=== PATIENT | male | born 1985 | race Caucasian/White ===

== ENCOUNTER 2019-04-13 17:03 | Emergency (ER) | payer OTHER ==
[~2019-04-13] VITALS: Ht 170.2 cm; Wt 74.8 kg
[2019-04-13] MEDS ORDERED: LEXAPRO 10 MG T10 M2 PO (17:17)
[2019-04-13] MEDS ORDERED: NORCO 5-325 TA1 EAC1 PO (19:42)
[2019-04-13 19:44] VITALS: BP 126/81
== END 2019-04-13 20:04 | disposition home or self-care (01) ==
LOC: M.ERS 17:03
DX: S82.232A Displaced oblique fracture of shaft of left tibia, initial encounter for closed fracture (principal); F41.9 Anxiety disorder, unspecified; V29.9XXA Motorcycle rider (driver) (passenger) injured in unspecified traffic accident, initial encounter; Y93.89 Activity, other specified; Y92.89 Other specified places as the place of occurrence of the external cause; Y99.8 Other external cause status